=== PATIENT | female | born 1985 | race Two or more races ===

== ENCOUNTER 2024-09-03 13:06 | Outpatient (AMB) | payer BC, SELFPAY ==
[2024-09-03 13:28] VITALS: BP 132/83; PULSE 83; RESP 17; TEMP 36.8; O2SAT 96; BMI 47.0
--- NOTE | 2024-09-03 13:28 | AMB.GYNCLNOT ---
Vital Signs 09/03/24 13:28 Height 1.65 m Height Method Measured Weight 128.026 kg Weight Measurement Method Standing Scale BMI 47.0 BP 132/83 H Blood Pressure Source Automatic Cuff Blood Pressure Location Right Upper Arm Position Sitting Respiration 17 Pulse 83 Pulse Source Monitor Temp 98.3 F Temp Source Temporal Artery Scan Pulse Oximetry (%) 96 Oxygen Delivery Method Room Air Allergies/Home Meds Allergies & Medications Allergies latex Allergy (Verified 09/03/24 13:29) shellfish derived Allergy (Verified 09/03/24 13:29) Medication Reconciliation ketorolac 10 mg tablet 10 mg PO Q6H PRN pain 5 days #20 tabs 09/03/24 [Rx] minocycline 100 mg capsule 100 mg PO BID 7 days #14 caps 09/03/24 [Rx] misoprostol 100 mcg tablet (Cytotec) 100 mcg PO BID #10 tabs 09/03/24 [Rx] Intake Visit Data Collection New Patient or Established: New Patient (never been to [facility]) Reason for Visit:: F\U miscarriage Consent obtained for Telemed Visit: No Seen by Clinical Staff ONLY (RN/MA): No 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 Required: No Do You Feel Safe at Home: Yes Authorities Contacted: N/A PCP or OBGYN visit in last 3 months: No Hx Now: No Are you currently on any form of Control: No Last menstrual period: 06/19/24 Pain Present Currently: No Pain Scale Used: Medina-Lock/Numerical Pain scale:: 0 Smoking Status Smoking Status: Never smoker 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 History Menstrual regularity: regular Flow: heavy Monthly: Yes How many days does period last: 5 Age at menarche: 14 Menopausal: No Currently sexually active: Yes Additional comments: Last Pap smear 2022 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 1. Little interest or pleasure in doing things: not at all 2. Feeling down, depressed, or hopeless: not at all Total score: 0 PHQ-9 3. Trouble falling or staying asleep, or sleeping too much: Not at all 4. Feeling tired or having little energy: Not at all 5. Poor appetite or overeating: Not at all 6. Feeling bad about yourself - or that you are a failure or have let yourself or your family down: Not at all 7. Trouble concentrating on things, such as reading the newspaper or watching television: Not at all 8. Moving or speaking so slowly that other people could have noticed? - Or the opposite - being so fidgety or restless that you have been moving around a lot more than usual: not at all 9. Thoughts that you would be better off or of hurting yourself in some way: Not at all Total score: 0 If you checked off any problems, how difficult have these problems made it for you to do your work, take care of things at home, or get along with other people?: not difficult at all Source: Developed by Drs. Ismael Marie, Nabila Valdovinos, Miko Arellano and colleagues, with an educational steve from [employer]. Social History Living Situation History Marital Status: Lives With: Family Housing: House Housing Other:: 10-y/o, 4-y/o and a 2-1/2-year-old at home. 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 She was diagnosed with a 9-week intrauterine with cardiac activity. She then went back there the with some heavier bleeding and they said the baby was still in there but it was in the lower uterine segment. She presents here for follow-up. I used to see her in [place]. I do not have any records today. She is still cramping and bleeding no fevers chills. Exam General General Appearance: alert, in no apparent distress, comfortable, cooperative, healthy appearing and well groomed Neck Neck exam: Present normal inspection, full ROM and trachea midline Chest Chest inspection: Present normal inspection and symmetric chest wall rise Resp Respiratory exam: Present normal lung sounds bilaterally Card Cardiovascular exam: Present regular rate, normal rhythm and normal heart sounds Abdominal Abdominal exam: Present soft and normal bowel sounds External exam: Present normal external exam Speculum exam: Present vaginal bleeding and other (Patient has foul-smelling products of conception at external os. Teased out with ring forcep in the office. Small to moderate amounts of bleeding present.) Extremities Extremities exam: Present normal inspection and full ROM Psych Psychiatric exam: Present normal affect and normal mood Skin Skin exam: Present warm, dry, intact and normal color Office Procedures OB Clinic LOC & Office Proc's Nursing/Assessment Patient Status: Initial/New Patient OB Clinic Nursing Assessment: Medication Reconciliation, Update PMH in EMR and Vital Signs OB Clinic Coordination of Care: Complex Care and Chronic Disease 1-5, Consent,records obtained, informed consent, Education Simp Pt/Fam, 4+ Authorizations needed, Lab and Imaging orders, Results/Orders obtained and Staff clarify orders Miscellaneous Interventions: Path collection/handling and Phys assist w/Procedure (UTERINE CONTENT REMOVED) New Patient Charge New Patient Point Assignment: 1169 New Patient Point Charge: JAVA ENTERPRISE ARCHITECT Level 5 (1159-[id number]) Injection/Vaccine Admin SQ Im Injection: Yes (IM INJECTION X 2) Office Meds ceftriaxone 500 mg solution for injection Performing Provider: Liz Garcia (OB Clinic)MD Performing Location: [facility] Administered by: Maureen Haddad MA on 09/03/24 15:36 Dose Route Admin Location Dispensed Lot Number Expiration Date [facility] Electric [employer] Analyst 500 mg IM LEFT GLUTE 500 mg [id number] 01/11/26 [address]-1 [employer] ceftriaxone 500 mg solution for injection Performing Provider: Liz Garcia (OB Clinic)MD Performing Location: [facility] Administered by: Chica Snyder MA on 09/03/24 16:04 Dose Route Admin Location Dispensed Lot Number Expiration Date [facility] [employer] 500 mg IM RIGHT GLUTE 500 mg [id number] 01/11/26 [address]-3 [employer] Assessment & Plan Diagnosis / Problem List (1) Complete with genital tract or pelvic infection: Status: Acute Assessment and Plan: The patient likely has mostly a complete AB. Some products of conception were teased out today. The products of conception have a foul odor. Patient was given 1 g IM Rocephin. And doxycycline 100 mg p.o. twice daily x 7 days. She was told to refrain from intercourse for 2 weeks she was told to call if she has fevers or turbulent discharge from the vagina. She was sent over for an official ultrasound stat at [facility]. I looked at the films and it looks like patient has a thickened stripe at the fundus patient also has what appears to be retained products in the lower cervix measuring 5 cm in greatest diameter. Patient would not tolerate more probing with a ring forcep in the office. Patient was given options including watchful waiting versus is sending her over to the emergency room to be prepared for a suction D&C. The patient would like to try oral Cytotec to see if she passes the remaining tissue in her cervix. If she continues to bleed she was told to come back to [facility] and request a gynecology referral and proceed to the OR for a suction dilation and curettage. All questions were answered. She will follow-up with me early next week. Total time spent on this patient including phone calls, reviewing ultrasounds , a pelcic exam, ultrasound and prescribing medications 40 minutes. 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 Thickened endometrial stripe present. Impression/findings:: No retained products of conception. Question fullness at the cervix.
== END 2024-09-03 15:42 | disposition home or self-care (01) ==
PROVIDERS: PCP Obstetrics & Gynecology; Referring Provider Obstetrics & Gynecology; Supervising Provider Obstetrics & Gynecology; Visit Provider Obstetrics & Gynecology
DX: O03.9 Complete or unspecified spontaneous abortion without complication (principal)
CPT/HCPCS: 96372; 99203; 99205; J0696; G0463

== ENCOUNTER → 2024-09-03 | Outpatient (CLI) | payer BC, SELFPAY ==
--- NOTE | 2024-09-03 15:53 | XR_ITS ---
Examination: Pelvic ultrasound, transabdominal, complete Technique: Transabdominal ultrasound of the pelvis performed using grayscale imaging Date and time of exam: September 03, 2024 1626 hours INDICATIONS: History spontaneous August 31, 2024 followed by heavy vaginal bleeding FINDINGS: Uterus 13.3 cm, retained products in the fundal endometrium 2.1 cm and in the lower uterine body cervix 5.4 cm No intrauterine gestation. Right ovary 3.7 cm arterial flow. Left ovary 4.3 cm arterial flow follicular cysts IMPRESSION: Positive for extensive retained product of conception
== END | disposition home or self-care (01) ==
PROVIDERS: PCP Internal Medicine; Referring Provider Obstetrics & Gynecology; Visit Provider Obstetrics & Gynecology
DX: O03.4 Incomplete spontaneous abortion without complication (principal)
CPT/HCPCS: 76856

== ENCOUNTER → 2024-09-21 | Outpatient (CLI) | payer BC, SELFPAY ==
--- NOTE | 2024-09-21 14:13 | XR_ITS ---
Examination: Pelvic ultrasound, transabdominal, complete Technique: Transabdominal ultrasound of the pelvis performed using grayscale imaging Date and time of exam: September 21, 2024 1426 hours INDICATIONS: Status post spontaneous September 06, 2024 FINDINGS: Uterus 9.3 cm endometrial stripe 1.5 cm No uterine mass or retained products of conception Right ovary 4.4 cm arterial flow Left ovary 4.4 cm arterial flow IMPRESSION: No uterine mass or retained process of conception
== END | disposition home or self-care (01) ==
PROVIDERS: PCP Internal Medicine; Referring Provider Obstetrics & Gynecology; Visit Provider Obstetrics & Gynecology
DX: O03.5 Genital tract and pelvic infection following complete or unspecified spontaneous abortion (principal)
CPT/HCPCS: 76856

== ENCOUNTER 2024-09-30 10:58 | Outpatient (AMB) | payer BC, SELFPAY ==
[2024-09-30 11:08] VITALS: BP 138/84; PULSE 84; RESP 17; TEMP 36.8; O2SAT 98; BMI 46.6
--- NOTE | 2024-09-30 11:08 | AMB.GYNCLNOT ---
Vital Signs 09/30/24 11:08 Height 1.65 m Height Method Measured Weight 127.006 kg Weight Measurement Method Standing Scale BMI 46.6 BP 138/84 H Blood Pressure Source Automatic Cuff Blood Pressure Location Right Upper Arm Position Sitting Respiration 17 Pulse 84 Pulse Source Monitor Temp 98.3 F Temp Source Temporal Artery Scan Pulse Oximetry (%) 98 Oxygen Delivery Method Room Air Allergies/Home Meds Allergies & Medications Allergies latex Allergy (Verified 09/30/24 11:08) shellfish derived Allergy (Verified 09/30/24 11:08) Medication Reconciliation misoprostol 100 mcg tablet (Cytotec) 100 mcg PO BID #10 tabs 09/03/24 [Rx Confirmed 09/30/24] Intake Visit Data Collection New Patient or Established: Established Patient (seen at [facility] within 3 years) Reason for Visit:: US RESULTS Consent obtained for Telemed Visit: No Seen by Clinical Staff ONLY (RN/MA): No Brand Representative Required: No Do You Feel Safe at Home: Yes Authorities Contacted: N/A PCP or OBGYN visit in last 3 months: Yes Date of Last PCP or OBGYN visit: 09/03/24 Hx Now: No Are you currently on any form of Control: No Pain Present Currently: No Pain Scale Used: Medina-Lock/Numerical Pain scale:: 0 Smoking Status Smoking Status: Never smoker 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 1. Little interest or pleasure in doing things: not at all PHQ-9 8. Moving or speaking so slowly that other people could have noticed? - Or the opposite - being so fidgety or restless that you have been moving around a lot more than usual: not at all Source: Developed by Drs. Ismael Marie, Nabila Valdovinos, Miko Arellano and colleagues, with an educational steve from [employer]. Social History Living Situation History Lives With: Family Housing: House Housing Other:: 10-y/o, 4-y/o and a 2-1/2-year-old at home. 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 She originally went to [facility] August 13 and reported some bleeding in early . They performed an ultrasound she had a 9-week intrauterine with cardiac activity. She was sent home. I do not have any notes from that visit. She then started bleeding heavier 08/31 and went back to [facility]. I do have the notes from that visit on the chart. She had a 9-week 1 day fetus with no heart tones. They called the MAINTENANCE SUPERVISOR 2ND SHIFT on-call, Dr. Mitchell, who said that since patient was hemodynamically stable, that they did not want to perform a D&C. The patient then presented here for follow-up on 09/03. On that day, she stated she had passed clots and some tissue. When I examined the patient, she had some retained products coming from her os on speculum exam and these were teased out. The tissue had an extremely foul odor. She was given a shot of Rocephin 1 gm and prescribed doxycycline 100 mg p.o. twice daily for 7 days. She was sent for stat ultrasound which revealed retained products in her uterine cavity. 2.1 cm at her fundus and a large 5 x 4 cm mass of retained products in her lower uterine segment. Patient was given options by phone to go to the ER to have a D&C performed by me that day, or to take oral Cytotec. Patient opted for oral Cytotec. She stated that she passed all the tissue by October 06. She feels fine now. Patient states she is not sure she ever wants to attempt again. She denies fevers chills heavy vaginal bleeding. She is going to use condoms for contraception. Review of Systems Review of Systems Narrative Review of Systems: No more bleeding. No fevers no chills. No foul discharge. Exam Narrative Physical exam: Pelvic exam deferred. General Limitations: no limitations General Appearance: alert, in no apparent distress, comfortable, cooperative, healthy appearing, well developed and well groomed Results Objective Imaging: An ultrasound was reviewed with the patient from 09/21/2024 revealed the uterus to measure 9.9 cm in largest diameter with a stripe of 1.5 cm. Left and right ovary were normal. There was no retained products present. Office Procedures OB Clinic LOC & Office Proc's Nursing/Assessment Patient Status: Established Patient OB Clinic Nursing Assessment: Medication Reconciliation, Update PMH in EMR and Vital Signs OB Clinic Coordination of Care: Complex Care and Chronic Disease 1-5, Consent,records obtained, informed consent, Education Simp Pt/Fam, 4+ Authorizations needed and Results/Orders obtained Established Patient Charge Established Patient Point Assignment: 105 Established Patient Point Charge: EP Level 3 (80-115) Assessment & Plan Diagnosis / Problem List (1) Complete with genital tract or pelvic infection: Status: Acute Assessment and Plan: Patient is status post complete AB. A repeat ultrasound 09/21/2024 reveals a normal uterine cavity with a stripe of 1.5 cm and no retained products. Patient denies fevers chills. She was treated with Rocephin and doxycycline for possible endometritis with infected retained products about 2 weeks ago. Patient was told it is okay to go back to normal activities including intercourse and using tampons as needed. She can swim. I would recommend condoms for at least 3 normal cycles before she tries attempts again. Patient states she might be done having babies after this experience.. She will call if she wants any other type of control besides condoms. She will follow-up yearly for an annual exam. Additional Plan Follow Up: 1 Year
== END 2024-09-30 11:44 | disposition home or self-care (01) ==
LOC: HODSOBC 10:58
PROVIDERS: PCP Internal Medicine; Referring Provider Internal Medicine; Supervising Provider Obstetrics & Gynecology; Visit Provider Obstetrics & Gynecology
DX: O03.9 Complete or unspecified spontaneous abortion without complication (principal); Z91.040 Latex allergy status; Z91.013 Allergy to seafood
CPT/HCPCS: 99213; G0463